=== PATIENT | female | born 1980 | race Caucasian/White ===

== ENCOUNTER → 2017-05-16 | Day surgery (SDC) | payer OTHER ==
[~2017-05-16] VITALS: Ht 175.3 cm; Wt 108.9 kg
[~2017-05-16] MED LIST: 0.9% Sodium Chloride 1,000 ML IV SCH; FERR-83 PO; Lactated Ringer's 1,000 ML IV ONE; PREN1TAB47 ORAL064; Sodium Chloride LOK Flush 10 mL Syringe IV PRN; fentaNYL-PF 50 mCg/mL 2 mL Inj IVPUSH PRN
[2017-05-16 09:47] VITALS: BP 133/81; PULSE 64; RESP 14; O2SAT 98
[2017-05-16 11:05] VITALS: BP 109/66; PULSE 66; RESP 14; O2SAT 100
[2017-05-16 11:16] VITALS: BP 118/63; PULSE 65; RESP 16; O2SAT 98
[2017-05-16 11:27] VITALS: BP 120/68; PULSE 80; RESP 14; O2SAT 99
--- NOTE | 2017-05-16 11:58 | ENDO ---
[address] [address] ENDOSCOPY PROCEDURE PATIENT: MANJINDER RAMOS : 1980 MR#: [id number] ADMIT: 05/16/2017 JOB ID: [id number] PROCEDURE: Esophagogastroduodenoscopy. INDICATION: Iron-deficiency anemia. ASA CLASSIFICATION: 2. MALLAMPATI SCORE: 2. MEDICATIONS: Versed 8 mg, fentanyl 200 mcg. INSTRUMENT USED: GIF-H190. PROCEDURE DETAILS: After informed consent was obtained, the patient was brought into the GI suite, where she was placed on oxygen via nasal cannula and monitored with continuous pulse oximeter, telemetry, and blood pressure monitoring. A time-out was performed. Then, she was placed in a left lateral decubitus position and medications were administered for sedation. A bite block was placed. The standard EGD scope was inserted through the bite block and advanced under direct visualization to the second portion of duodenum without difficulty. FINDINGS: 1. Normal exam from esophagus to the duodenum. 2. Multiple random biopsies were obtained in the duodenum for the patient's history of iron deficiency anemia. IMPRESSION: Normal esophagogastroduodenoscopy exam. RECOMMENDATIONS: 1. Await biopsy results. 2. Proceed to colonoscopy. COMPLICATIONS: None. ESTIMATED BLOOD LOSS: Less than 5 mL.
--- NOTE | 2017-05-16 12:02 | ENDO ---
[address] [address] ENDOSCOPY PROCEDURE PATIENT: MANJINDER RAMOS : 1980 MR#: [id number] ADMIT: 05/16/2017 JOB ID: [id number] PROCEDURE PERFORMED: Colonoscopy. INDICATION: Iron deficiency anemia. ASA CLASSIFICATION/MALLAMPATI SCORE: Please see above for ASA classification, Mallampati score, medications. INSTRUMENT USED: [employer]-H180-AL. PREPARATION QUALITY: Good. PROCEDURE DETAILS: After completion of the EGD exam, the patient was turned and a digital rectal exam was performed, which was unremarkable. The colonoscope was then inserted into the rectum and advanced under direct visualization to the terminal ileum which was identified by the presence of the ileocecal valve and villous-appearing mucosa of the terminal ileum. Once the terminal ileum was reached, the colonoscope was withdrawn back into the rectum as the mucosa and lumen were examined. In the rectum, retroflexion was performed. Following retroflexion, remaining air in the rectum was suctioned, and procedure was completed. FINDINGS: 1. In the rectosigmoid colon, there were two polyps. The larger polyp measured approximately 4 mm, was removed with the cold snare. The more distal polyp was removed with cold biopsy forceps. 2. Scattered diverticula were seen throughout the sigmoid colon. IMPRESSION: 1. Two rectosigmoid polyps. 2. Left-sided diverticulosis. RECOMMENDATIONS: 1. Follow up in GI clinic. 2. No findings to explain the patient's iron deficiency anemia on upper endoscopy or colonoscopy. COMPLICATIONS: None. ESTIMATED BLOOD LOSS: Less than 5 mL.
--- NOTE | 2017-05-17 14:12 | PATH ---
SURGICAL PATHOLOGY Attending Physician:Nader Henning CASE STATUS: Signed Out PATIENT NAME: MANJINDER RAMOS PID: [id number] : 1980 DATE COLLECTED:05/16/2017 21:47 SPECIMEN: 1: Duodenum, Biopsy 2: Colon, Polyp CLINICAL HISTORY: ANEMIA 1). DUODENUM BIOPSY 2). RECTAL SIGMOID POLYPS X2 FINAL DIAGNOSIS: 1. Duodenum, Biopsy: Duodenal mucosa with no diagnostic abnormality. Negative for active inflammation, features of sprue, dysplasia or malignancy. 2. Rectosigmoid Polyps x2, Biopsies: Hyperplastic polyp x2. ICD10: D50.9 K63.5 GROSS DESCRIPTION: The specimen is received in two formalin filled containers labeled with the patient's name. 1). The specimen is labeled "duodenum" and consists of 5 portions of tissue which aggregate to 0.3 x 0.3 x 0.2 CM. The specimen is entirely submitted in cassette 1A. 2). The specimen is labeled "rectal sigmoid polyps" and consists of 2 portions of tissue which aggregate to 0.3 x 0.3 x 0.3 CM. The specimen is entirely submitted in cassette 2A. 05/16/2017DC ICD-9 CODES: CPT CODES: 1: 02691 2: 43580 Electronically Signed Out Frank Kwan MD, Ph.D. [facility] Pathology [facility] [address], [place] [address] Technical component performed at [facility], [address] [place] [address] Ave[address], [place], [address]
== END | disposition home or self-care (01) ==
LOC: END 00:47
PROVIDERS: ATTEND Internal Medicine Gastroenterology
DX: D50.9 Iron deficiency anemia, unspecified (principal); K63.5 Polyp of colon; K57.30 Diverticulosis of large intestine without perforation or abscess without bleeding; Z79.899 Other long term (current) drug therapy
CPT/HCPCS: 43239; 45380; 45385; 99153; G0500; J2250; J3010; J7030